=== PATIENT | male | born 1965 | race Hispanic/Latino ===

== ENCOUNTER 2018-11-28 16:00 | Emergency (ER) | payer BC ==
[2018-11-28 16:59] LABS: BASOPHILS % (AUTO) 0.1 % (0.0-5.0); EOSINOPHILS % (AUTO) 2.1 % (0.0-8.0); LYMPHOCYTES % (AUTO) 23.7 % (21.0-51.0); MEAN CORPUSCULAR HGB CONC 34.2 g/dL (32.0-36.0); MEAN CORPUSCULAR VOLUME 87.9 fL (79-99); MONOCYTES % (AUTO) 9.3 % (3.0-13.0); NEUTROPHILS % (AUTO) 64.8 % (40.0-77.0); PLATELET COUNT (AUTO) 203 K/uL (130-400); RED BLOOD CELL COUNT(AUTO) 5.23 MIL/uL (4.50-6.20); RED CELL DISTRIBUTION WIDTH 13.7 % (11.0-15.5)
[2018-11-28 17:13] LABS: POTASSIUM 4.1 mmol/L (3.5-5.1)
[2018-11-28 17:17] LABS: ALBUMIN 3.8 g/dL (3.5-5.0); TOTAL PROTEIN, SERUM 7.8 g/dL (6.0-8.3)
[2018-11-28 17:25] LABS: APPEARANCE,URINE Clear (CLEAR); BILIRUBIN,URINE Negative (NEGATIVE); COLOR,URINE Yellow (YELLOW); GLUCOSE, URINE (UA) Negative (NEGATIVE); KETONES,URINE Negative (NEGATIVE); LEUKOCYTE ESTERASE ,URINE Negative (NEGATIVE); NITRATE,URINE Negative (NEGATIVE); OCCULT BLOOD,URINE Negative (NEGATIVE); PROTEIN,URINE Trace (NEGATIVE)
[2018-11-28 17:40] LABS: BACTERIA,URINE Rare /HPF (None Seen); RBC,URINE 0-1 /HPF (0-1); SQUAMOUS EPITHELIAL CELL,UR Rare /HPF (0-2); WBC,URINE 0-1 /HPF (0-1)
[2018-11-28 17:41] LABS: MUCUS,URINE Few LPF (None Seen)
[2018-11-29] MEDS ORDERED: ONDANSETRON HCL 4 MG/2 ML VIAL ONE (00:45)
[2018-11-29] MEDS ORDERED: MORPHINE SULFATE 4 MG/1ML SYG ONE (00:46)
== END 2018-11-28 19:01 | disposition home or self-care (01) ==
LOC: EDH 16:00
DX: K42.9 Umbilical hernia without obstruction or gangrene (principal); Z98.890 Other specified postprocedural states; Z87.891 Personal history of nicotine dependence
CPT/HCPCS: 36415; 74018; 74176; 80053; 81001; 83690; 85025; J2270; J2405

== ENCOUNTER 2018-12-21 07:36 | Day surgery (SDC) | payer BC ==
[2018-12-18 16:36] VITALS: BP 136/83
[2018-12-18 16:37] LABS: APPEARANCE,URINE Clear (CLEAR); BILIRUBIN,URINE Negative (NEGATIVE); COLOR,URINE Yellow (YELLOW); EOSINOPHILS % (AUTO) 2.4 % (0.0-8.0); GLUCOSE, URINE (UA) Negative (NEGATIVE); HEMATOCRIT 42.2 % (42-54); KETONES,URINE Trace mg/dL (NEGATIVE); LEUKOCYTE ESTERASE ,URINE Negative (NEGATIVE); LYMPHOCYTES % (AUTO) 27.4 % (21.0-51.0); MEAN CORPUSCULAR HEMOGLOBIN 29.9 pg (27.0-33.0); MEAN CORPUSCULAR HGB CONC 34.2 g/dL (32.0-36.0); MEAN CORPUSCULAR VOLUME 87.4 fL (79-99); MONOCYTES % (AUTO) 10.1 % (3.0-13.0); NEUTROPHILS % (AUTO) 59.1 % (40.0-77.0); NITRATE,URINE Negative (NEGATIVE); NUCLEATED RED BLOOD CELLS 0.1 % (0.0-0.19); OCCULT BLOOD,URINE Negative (NEGATIVE); PH,URINE 5.5 (5.0-8.0); PLATELET COUNT (AUTO) 225 K/uL (130-400); PROTEIN,URINE Trace (NEGATIVE); RED BLOOD CELL COUNT(AUTO) 4.83 MIL/uL (4.50-6.20); RED CELL DISTRIBUTION WIDTH 13.6 % (11.0-15.5); WHITE BLOOD COUNT (AUTO) 5.7 K/uL (4.8-10.8)
[2018-12-18 16:50] LABS: CREATININE 1.3 mg/dL (0.5-1.5); POTASSIUM 3.9 mmol/L (3.5-5.1)
[2018-12-18 16:56] LABS: BACTERIA,URINE Rare /HPF (None Seen); RBC,URINE 0-1 /HPF (0-1); SQUAMOUS EPITHELIAL CELL,UR None Seen /HPF (0-2); WBC,URINE 0-1 /HPF (0-1)
[~2018-12-21] VITALS: Ht 175.3 cm; Wt 104.1 kg
[2018-12-21] VITALS (13 sets, daily range): BP systolic 109–126; BP diastolic 65–80
[2018-12-21] MEDS ORDERED: LACTATED RINGERS 1000ML 1,000 ML IV ONE (09:37)
[2018-12-21] MEDS ORDERED: LIDOCAINE PF 2% 5ML ABBOJECT ONE ×2 (09:49→09:52)
[2018-12-21] MEDS ORDERED: SUCCINYLCHOLINE 200MG/10ML SYR ONE (09:49)
[2018-12-21] MEDS ORDERED: NEOSTIGMINE 5MG/5ML SYR IV ONE (09:50)
[2018-12-21] MEDS ORDERED: GLYCOPYRROLATE 1 MG/5 ML SYRINGE ONE (09:50)
[2018-12-21] MEDS ORDERED: MIDAZOLAM HCL 1 MG/ML 2ML VIAL ONE (09:50)
[2018-12-21] MEDS ORDERED: ROCURONIUM 10MG/1ML SYR 10 MG/ML ML ONE (09:50)
[2018-12-21] MEDS ORDERED: ONDANSETRON HCL 4 MG/2 ML VIAL ONE (09:50)
[2018-12-21] MEDS ORDERED: PROPOFOL 10 MG/ML 20ML VIAL IV ONE (09:50)
[2018-12-21] MEDS ORDERED: FENTANYL CITRATE PF 50 MCG/1 ML 2ML VIAL ONE ×2 (09:51→10:19)
[2018-12-21] MEDS ORDERED: BUPIVACAINE/PF 0.25% 30ML VIAL IJ ONE (10:08)
[2018-12-21] MEDS ORDERED: DEXAMETHASONE SOD PHOSPHATE 4 MG/ML 1ML VIAL ONE (10:19)
[2018-12-21] MEDS ORDERED: KETOROLAC TROMETHAMINE 30MG/ML ONE (10:44)
== END 2018-12-21 13:00 | disposition home or self-care (01) ==
LOC: DAH 07:36
PROVIDERS: ATTEND Surgery
DX: K42.9 Umbilical hernia without obstruction or gangrene (principal); K40.90 Unilateral inguinal hernia, without obstruction or gangrene, not specified as recurrent; Z68.33 Body mass index [BMI] 33.0-33.9, adult; Z83.3 Family history of diabetes mellitus; Z80.0 Family history of malignant neoplasm of digestive organs; E66.9 Obesity, unspecified; Z86.010 Personal history of colon polyps; Z98.890 Other specified postprocedural states; Z82.49 Family history of ischemic heart disease and other diseases of the circulatory system; K76.0 Fatty (change of) liver, not elsewhere classified
CPT/HCPCS: 36415; 49505; 49585; 80048; 81001; 85025; A4450; A4452; A4606; C1729; C1781 ×2; J0330; J1100; J1885; J2001 ×2; J2250; J2405; J2704; J2710; J3010 ×2; J3490; J7120

== ENCOUNTER → 2024-09-16 | Outpatient (CLI) | payer BC ==
[2024-09-16 22:37] VITALS: PULSE 70; RESP 22
[2024-09-16 23:00] VITALS: PULSE 70; RESP 22
[2024-09-16 23:30] VITALS: PULSE 68; RESP 20
[2024-09-17] VITALS (11 sets, daily range): PULSE 62–72; RESP 12–22
== END | disposition home or self-care (01) ==
LOC: SLP 20:38
PROVIDERS: ATTEND Family Medicine
DX: G47.33 Obstructive sleep apnea (adult) (pediatric) (principal); R53.83 Other fatigue
CPT/HCPCS: 95810